=== PATIENT | female | born 1995 | race Caucasian/White ===

== ENCOUNTER 2022-05-04 15:27 | Emergency (ER) | payer OTHER ==
[~2022-05-04] VITALS: Ht 170.2 cm; Wt 65.8 kg
[2022-05-04 15:32] VITALS: BP 127/78
[2022-05-04] MEDS ORDERED: LIDOCAINE 1% 500 MG/ 50 ML VIAL INJ ONE (15:45)
--- NOTE | 2022-05-04 15:45 | NUR ---
26 Y/O FEMALE BIB SELF C/O LAC ON LEFT NARE, PER PT SHE RAN INTO A RAILING. LAST TDAP 2015. NO ACTIVE BLEEDING AT THIS TIME. JUDY PMH: DENIES
[2022-05-04] MEDS ORDERED: LIDOCAINE MPF 1% 5 ML ONE (15:48)
[2022-05-04] MEDS ORDERED: ACET-10509 PO (16:25)
--- NOTE | 2022-05-04 16:32 | NUR ---
Patient discharged with v/s stable. Written and verbal after care instructions ABOUT LAC CARE given and explained. Patient alert, oriented and verbalized understanding of instructions. Ambulatory with steady gait. All questions addressed prior to discharge. ID band removed. Patient advised to follow up with PMD. Rx of TYLENOL given. Patient educated on indication of medication including possible reaction and side effects. Opportunity to ask questions provided and answered.
== END 2022-05-04 16:32 | disposition home or self-care (01) ==
LOC: MED 15:27
DX: S01.21XA Laceration without foreign body of nose, initial encounter (principal); W22.8XXA Striking against or struck by other objects, initial encounter; Y93.89 Activity, other specified; Y92.89 Other specified places as the place of occurrence of the external cause; Y99.8 Other external cause status
CPT/HCPCS: 12011; 99282; J2001; 12001

== ENCOUNTER 2023-02-28 15:10 | Inpatient (IN) | payer OTHER ==
[~2023-02-28] VITALS: Ht 170.2 cm; Wt 86.6 kg
[~2023-02-28 15:10] MED LIST: ACET-10509 PO
[2023-02-28] MEDS ORDERED: PREN-543 PO (15:38)
[2023-02-28] MEDS ORDERED: METHYLERGONOVINE 0.2 MG/ML AMP IM PRN (15:40)
[2023-02-28] MEDS ORDERED: OXYTOCIN 10 UNITS/ML VIAL IM SCH (15:40)
[2023-02-28] MEDS ORDERED: CARBOPROST 250 MCG/ML AMP IM PRN (15:40)
[2023-02-28] MEDS ORDERED: LACTATED RINGERS 500 ML IV SCH (15:40)
[2023-02-28 16:14] LABS: BASOPHILS % (AUTO) 0.1 % (0.0-2.0); EOSINOPHILS % (AUTO) 0.4 % (0.0-4.0); HEMATOCRIT 36.2 % (36-48); HEMOGLOBIN 12.8 g/dL (12.0-16.0); LYMPHOCYTES # (AUTO) 1.2 K/uL (2.5-16.5); LYMPHOCYTES % (AUTO) 11.8 % (20.5-51.1); MEAN CORPUSCULAR HEMOGLOBIN 33 pg (27-31); MEAN CORPUSCULAR HGB CONC 35 g/dL (33-37); MEAN CORPUSCULAR VOLUME 94.4 fL (80-94); MONOCYTES # (AUTO) 0.7 K/uL (0.8-1.0); MONOCYTES % (AUTO) 6.7 % (1.7-9.3); NEUTROPHILS # (AUTO) 8.5 K/uL (1.8-7.7); PLATELET COUNT (AUTO) 219 K/uL (140-450); RED BLOOD CELL COUNT(AUTO) 3.84 MIL/uL (4.20-5.40); RED CELL DISTRIBUTION WIDTH 13.8 % (11.6-13.7); WHITE BLOOD COUNT (AUTO) 10.5 K/uL (4.8-10.8)
[2023-02-28 16:18] LABS: APPEARANCE,URINE CLEAR (CLEAR); BILIRUBIN,URINE NEGATIVE (NEGATIVE); BLOOD, URINE NEGATIVE (NEGATIVE); COLOR,URINE YELLOW (YELLOW); LEUKOCYTE ESTERASE ,URINE NEGATIVE (NEGATIVE); NITRITE, URINE NEGATIVE (NEGATIVE); PROTEIN,URINE NEGATIVE (NEGATIVE); UGLUCOSE NEGATIVE (NEGATIVE); UROBILINOGEN,URINE 0.2 EU/dL (0.2 - 1)
[2023-02-28 16:39] LABS: INR 0.88 (0.8-1.2); PARTIAL THROMBOPLASTIN TIME 28.4 secs (22-35.6); PROTHROMBIN TIME 9.3 secs (10.8-13.4)
[2023-02-28] MEDS ORDERED: ONDANSETRON 4 MG/2 ML VIAL IVP PRN (16:45)
[2023-02-28] MEDS ORDERED: OXYTOCIN 20 UNITS in LACTATED RINGERS 1,000 ML IV SCH (16:45)
[2023-02-28 17:29] VITALS: BP 130/69; PULSE 79; RESP 18; TEMP 98.1
[2023-02-28] MEDS ORDERED: MORPHINE SULFATE 10 MG/ML VIAL IVP PRN (17:40)
[2023-02-28] MEDS: LACTATED RINGERS 1,000 ML IV SCH ×2 (17:44→18:23)
[2023-02-28 17:58] LABS: ALBUMIN 2.5 g/dL (3.4-5.0); ANION GAP 12.9 (8-16); CALCIUM 8.9 mg/dL (8.5-10.1); CARBON DIOXIDE 23.7 mmol/L (21-32); CREATININE 0.7 mg/dL (0.6-1.3); POTASSIUM 3.6 mmol/L (3.5-5.1); TOTAL BILIRUBIN 0.6 mg/dL (0.0-1.0); TOTAL PROTEIN, SERUM 7.5 g/dL (6.4-8.2)
[2023-02-28] MEDS ORDERED: ROPIVACAINE 0.2%/NS PREMIX 200 ML EPI ONE (19:18)
[2023-03-01] MEDS: LACTATED RINGERS 1,000 ML IV SCH ×3 (00:07→15:11)
[2023-03-01] MEDS ORDERED: ROPIVACAINE 0.2%/NS PREMIX 200 ML EPI ONE ×2 (08:27→20:19)
[2023-03-01] MEDS ORDERED: OXYTOCIN 20 UNITS/LR PREMIX 1,000 ML IV ONE (09:23)
[2023-03-01] MEDS ORDERED: CITRIC ACID/SODIUM CITRATE 30 ML UDC PO SCH (20:10)
[2023-03-01] MEDS ORDERED: ceFAZolin 2,000 MG VIAL ONE (20:35)
[2023-03-01] MEDS ORDERED: MORPHINE PRES FREE 5 MG/10 ML AMP IV ONE (20:40)
[2023-03-01] MEDS ORDERED: CITRIC ACID/SODIUM CITRATE 30 ML UDC ONE (20:40)
[2023-03-01] MEDS ORDERED: fentaNYL citrate 0.05 MG/ML VIAL ONE (20:40)
[2023-03-01] MEDS ORDERED: LIDOCAINE/EPI 2% 1:100000 20 ML VIAL INJ ONE (21:00)
[2023-03-01] MEDS ORDERED: SODIUM BICARBONATE 8.4% PFS 50 MEQ/50 ML SYR IVP ONE (21:03)
[2023-03-01] MEDS ORDERED: ONDANSETRON 4 MG/2 ML VIAL IVP PRN (22:15)
[2023-03-02] MEDS: KETOROLAC 30 MG/ML VIAL IVP SCH ×4 (01:00→18:26)
[2023-03-02 10:08] LABS: EOSINOPHILS % (AUTO) 0.1 % (0.0-4.0); HEMATOCRIT 32.1 % (36-48); HEMOGLOBIN 11.1 g/dL (12.0-16.0); LYMPHOCYTES # (AUTO) 0.8 K/uL (2.5-16.5); LYMPHOCYTES % (AUTO) 4.9 % (20.5-51.1); MEAN CORPUSCULAR HEMOGLOBIN 33 pg (27-31); MEAN CORPUSCULAR HGB CONC 35 g/dL (33-37); MEAN CORPUSCULAR VOLUME 95.6 fL (80-94); MONOCYTES % (AUTO) 6.1 % (1.7-9.3); NEUTROPHILS # (AUTO) 15.3 K/uL (1.8-7.7); NEUTROPHILS % (AUTO) 88.9 % (42.2-75.2); PLATELET COUNT (AUTO) 175 K/uL (140-450); RED BLOOD CELL COUNT(AUTO) 3.35 MIL/uL (4.20-5.40); WHITE BLOOD COUNT (AUTO) 17.2 K/uL (4.8-10.8)
[2023-03-02] MEDS ORDERED: KETOROLAC 30 MG/ML VIAL IVP SCH (13:00)
[2023-03-02] MEDS ORDERED: OXYTOCIN 20 UNITS in LACTATED RINGERS 1,000 ML IV SCH (13:55)
[2023-03-02] MEDS: SIMETHICONE 80 MG TAB.CHEW PO PRN (18:16)
[2023-03-02] MEDS ORDERED: CAMERA MC ONE (19:32)
[2023-03-02] MEDS ORDERED: TEMAZEPAM 15 MG CAP PO PRN (19:55)
[2023-03-02] MEDS ORDERED: oxyCODONE/APAP 5/325 MG 1 TAB TAB PO PRN (19:55)
[2023-03-02] MEDS ORDERED: DOCUSATE SOD/SENNA 50/8.6 MG 1 TAB PO SCH (21:00)
[2023-03-02] MEDS ORDERED: DOCUSATE SOD/SENNA 50/8.6 MG 1 TAB ONE (21:46)
[2023-03-02] MEDS ORDERED: oxyCODONE/APAP 5/325 MG 1 TAB TAB ONE (21:55)
[2023-03-03] MEDS: KETOROLAC 30 MG/ML VIAL IVP SCH ×2 (00:07→06:12)
[2023-03-03] MEDS: oxyCODONE/APAP 5/325 MG 1 TAB TAB PO PRN ×3 (04:42→21:18)
[2023-03-03] MEDS: SIMETHICONE 80 MG TAB.CHEW PO PRN (12:40)
[2023-03-03] MEDS: IBUPROFEN 800 MG TAB PO PRN ×2 (12:41→20:10)
[2023-03-03] MEDS ORDERED: CAMERA MC ONE (23:47)
[2023-03-04] MEDS: IBUPROFEN 800 MG TAB PO PRN ×2 (04:03→12:52)
== END 2023-03-04 14:45 | disposition home or self-care (01) | DRG 788 ==
LOC: MLD 15:10 → OBSVTOIN 15:10 → MLD 15:14 → MFCC 03-01 22:47
PROVIDERS: ADMIT Obstetrics & Gynecology; ATTEND Obstetrics & Gynecology
PROC: 10D00Z1 Extraction of Products of Conception, Low, Open Approach (ICD-10-PCS; principal; 2023-03-02)
DX: O48.0 Post-term pregnancy (principal); O62.1 Secondary uterine inertia; O77.0 Labor and delivery complicated by meconium in amniotic fluid; Z3A.41 41 weeks gestation of pregnancy; Z37.0 Single live birth; Z20.822 Contact with and (suspected) exposure to COVID-19; Z79.1 Long term (current) use of non-steroidal anti-inflammatories (NSAID); Z79.899 Other long term (current) drug therapy
CPT/HCPCS: 36415; 51702; 80053; 81003; 85025; 85610; 85730; 86592; 86886; 86900; 86901; J1885; J2001; J2210; J2405; J2590; J2795; J3010; J7120